=== PATIENT | female | born 1975 | race Caucasian/White ===

== ENCOUNTER 2019-09-25 18:13 | Emergency (ER) | payer OTHER ==
[~2019-09-25] VITALS: Ht 170.2 cm; Wt 59.0 kg
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
[2019-09-25] MEDS ORDERED: HYDROCODONE/APAP 5/325MG 1 EACH TABLET PO ONE (19:00)
[2019-09-25] MEDS ORDERED: ONDANSETRON 4 MG TAB.RAPDIS SL ONE (19:00)
[2019-09-25] MEDS ORDERED: HYDROCODONE/APAP 5/325MG 1 EACH TABLET ONE (19:03)
[2019-09-25] MEDS ORDERED: ONDANSETRON 4 MG TAB.RAPDIS ONE (19:03)
--- NOTE | 2019-09-25 19:24 | NUR ---
XRAY AT BEDSIDE
[2019-09-25 21:16] VITALS: BP 130/76
== END 2019-09-25 21:17 | disposition home or self-care (01) ==
LOC: ER 18:13
DX: S60.021A Contusion of right index finger without damage to nail, initial encounter (principal); M25.551 Pain in right hip; F10.10 Alcohol abuse, uncomplicated; Y90.9 Presence of alcohol in blood, level not specified; Z98.890 Other specified postprocedural states; Z60.2 Problems related to living alone; V49.59XA Passenger injured in collision with other motor vehicles in traffic accident, initial encounter; Y93.89 Activity, other specified; Y92.488 Other paved roadways as the place of occurrence of the external cause; Y99.8 Other external cause status
CPT/HCPCS: 73140; 73502; 99283; Q0162